=== PATIENT | female | born 1995 | race Caucasian/White ===

== ENCOUNTER 2016-05-18 21:53 | Emergency (ER) | payer BC, OTHER ==
--- NOTE | 2016-05-18 22:12 | UCPHY ---
H & P Time Seen by Provider: 05/18/16 22:00 Patient Type: New HPI/ROS: This patient reports a 2 days or sore throat that was initially mild but became moderate to severe tonight. The pain worsens with swallowing but she still tolerating p.o. intake. She has associated subjective fevers but no high fevers or chills. She also has mild nasal congestion and cough. ROS: No other constitutional symptoms. HEENT: She has mild bilateral ear pressure. Pulmonary: No pleuritic pain or shortness of breath. GI: No vomiting. 7 point ROS is otherwise negative. Physical Exam: Physical Exam Vital signs are normal. General: No acute distress HEENT: Nose: Clear discharge bilaterally. No sinus tenderness to percussion. Ears: External canals and tympanic membranes are clear with no erythema or abnormal findings bilaterally. Oropharynx: Patient has 3+ tonsillar swelling bilaterally with significant erythema. No dysphonia. No dysphonia. No drooling or stridor. Neck: Supple with no meningismus. She has mild anterior cervical lymphadenopathy bilaterally. Eyes: Pupils equal and react to light. Extraocular motions are intact. Lungs: Clear to auscultation bilaterally with no rales, rhonchi or wheeze. No respiratory distress. Cardiac: Regular rate and rhythm with no murmur gallop or rub Skin: No rash or pallor. Neuro: Alert with no focal deficits noted. Initial differential diagnosis: Viral tonsillitis versus strep tonsillitis, flu , URI with cough Constitutional: Initial Vital Signs Temperature (C) 37.0 C 05/18/16 22:05 Heart Rate 117 H 05/18/16 22:05 Respiratory Rate 20 05/18/16 22:05 Blood Pressure 135/77 H 05/18/16 22:05 O2 Sat (%) 98 05/18/16 22:05 O2 Delivery Mode Room Air Allergies/Adverse Reactions: No Known Allergies Allergy (Unverified 05/18/16 22:13) Home Medications: Medication Instructions Recorded Penicillin V Potassium [Pen Vk 500 mg PO BID #20 tab 05/18/16 500mg (*)] Medical Decision Making ED Course/Re-evaluation: Rapid strep is positive. Patient is treated with initial dose of penicillin and ibuprofen I counseled regarding strep - Data Points Laboratory Results: 05/18/16 05/18/16 22:02 22:02 Influenza Typ A,B (DFA) NEGATIVE FOR FLU (NEGATIVE) Group A Strep Screen POSITIVE H (NEGATIVE) Medications Given: Discontinued Medications Ibuprofen (Motrin) 600 mg PO EDNOW ONE Stop: 05/18/16 22:50 Last Admin: 05/18/16 22:40 Dose: 600 mg Penicillin V Potassium (Pen Vk) 500 mg PO EDNOW ONE PRN Reason: Protocol Stop: 05/18/16 22:14 Last Admin: 05/18/16 22:40 Dose: 500 mg Departure - Departure Disposition: Home, Routine, Self-Care Clinical Impression: Strep tonsillitis Condition: Good Instructions: Strep Throat (ED) Additional Instructions: Diagnosis: Strep tonsillitis Plan: Ibuprofen and Tylenol for throat discomfort Penicillin antibiotic No school tomorrow Return for any significant worsening despite the treatment plan Referrals: NONE *PRIMARY CARE P,. [Unknown] - As per Instructions Stand Alone Forms: School Excuse Prescriptions: Penicillin V Potassium [Pen Vk 500mg (*)] 500 mg PO BID #20 tab - PQRS PQRS Measurement: NA
[2016-05-18] MEDS ORDERED: PENICILLIN VK 500 MG TAB PO ONE (22:13)
[2016-05-18 22:15] VITALS: BP 135/77; PULSE 117; RESP 20; TEMP 98.6; O2SAT 98
[2016-05-18] MEDS ORDERED: IBUPROFEN 600 MG TAB PO ONE ×2 (22:25→22:49)
== END 2016-05-18 22:45 | disposition home or self-care (01) ==
LOC: CED 21:53
DX: J03.00 Acute streptococcal tonsillitis, unspecified (principal)
CPT/HCPCS: 87400-PO; 87880-PO; 99203-PO; G0463-PO